=== PATIENT | male | born 1940 | race Caucasian/White ===

== ENCOUNTER 2016-07-27 12:36 | Day surgery (SDC) | payer MEDICARE, OTHER ==
[~2016-07-27] VITALS: Ht 172.7 cm; Wt 64.9 kg
[~2016-07-27 12:36] MED LIST: 0.9% Sodium Chloride 1,000 ML IV PRN; COLC0.6C3 PO; Sodium Chloride LOK Flush 10 mL Syringe IV PRN; ZLP10T PO; fentaNYL-PF 50 mCg/mL 2 mL Inj IVPUSH PRN
[2016-07-27 13:12] VITALS: BP 134/83; PULSE 56; RESP 16; O2SAT 97
[2016-07-27 14:50] VITALS: BP 121/74; PULSE 60; RESP 16; O2SAT 98
[2016-07-27 15:00] VITALS: BP 115/67; PULSE 58; RESP 16; O2SAT 96
[2016-07-27 15:10] VITALS: BP 125/90; PULSE 58; RESP 16; O2SAT 99
[2016-07-27 15:25] VITALS: BP 138/81; PULSE 57; RESP 16; O2SAT 99
--- NOTE | 2016-07-28 00:45 | ENDO ---
[address] [address] ENDOSCOPY PROCEDURE PATIENT: MIK NIEVES : 1940 MR#: [id number] ADMIT: 07/27/2016 JOB ID: [id number] DATE OF PROCEDURE: 07/27/2016 PRIMARY PROVIDER: KATIA Schilling. PROCEDURE: Esophagogastroduodenoscopy with biopsies and a colonoscopy with cold forceps polypectomy and hot snare polypectomy. INDICATIONS: A 76-year-old male with intermittent symptoms of dysphagia. He also reports for colon cancer screening and a personal history of colon polyps. Barium swallow did not reveal any stricture. EQUIPMENT: 1. GIF-H180J. 2. PCF-H180AL. SEDATION: 1. Versed 5 mg. 2. Fentanyl 100 mcg. COMPLICATIONS: None identified. BOWEL PREPARATION: Fair, adequate exam. PROCEDURE INFORMATION: After the risks and benefits were explained, written and verbal informed consent was obtained. The patient was brought into the endoscopy suite and placed into the left lateral decubitus position. Sedation was achieved using the above-stated medications with the addition of oxygen via nasal cannula. The scope was introduced into the mouth through the bite block and advanced under direct visualization to the second portion of the duodenum. The scope was slowly withdrawn to carefully examine the mucosa for any defects or lesions. Retroflexed views were accomplished in the stomach. The stomach was decompressed. The scope was removed from the patient who tolerated the procedure well. The patient was then turned around. A digital rectal examination accomplished. No significant pathology apart from some mild internal hemorrhoids were noted. The scope was introduced into the rectum and advanced under direct visualization to the level of the cecum, as identified by the appendiceal orifice and ileocecal valve. The scope was slowly withdrawn to carefully examine the mucosa for any defects or lesions. Retroflexed views were accomplished in the rectum. The colon was decompressed. The scope was removed from the patient who tolerated the procedure well. FINDINGS: 1. Duodenum: No significant pathology appreciated from the bulb through to the second portion. 2. Stomach: The patient had diffuse mild gastropathy noted throughout. Random biopsy was taken for exclusion of Helicobacter or any other underlying histopathology. No ulcers. No mass lesions. No outlet obstruction. Retroflexed views of the LES were rather unremarkable. 3. Esophagus: The squamocolumnar junction generally correlated with the top of the gastric folds. The GE junction was judged to be at approximately 40 cm from the incisors. There was evidence of LA Grade A erosive esophagitis. Right at the level of the GE junction there was perhaps a millimeter or two extension of salmon-colored mucosa up into the tubular esophagus, and this area was targeted for biopsy to exclude specialized intestinal metaplasia. Otherwise, the esophageal mucosa appeared unremarkable. The patient clearly had a subtle sliding hiatal hernia. 4. Colon: There was a diminutive polyp removed with cold forceps, and a slightly larger, perhaps 5 mm polyp, removed with hot snare from the right colon. Retroflexed views disclosed some mild internal hemorrhoids. Otherwise, no pathology appreciated throughout the colon. ENDOSCOPIC DIAGNOSES: 1. Hiatal hernia. 2. [place] Grade A erosive esophagitis. 3. 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 4. Gastropathy. 5. Colon polyps. 6. Hemorrhoids. RECOMMENDATIONS: 1. Await histopathology. 2. Protonix 20 mg once daily. 3. Repeat colonoscopy in five years. 4. If nondysplastic Cabrera's is identified, then repeat esophagogastroduodenoscopy in 9-12 months. 5. Follow up in my office in approximately six weeks to review response to proton pump inhibitor.
--- NOTE | 2016-07-29 13:52 | PATH ---
SURGICAL PATHOLOGY Attending Physician:Marbin Toure CASE STATUS: Signed Out PATIENT NAME: MIK NIEVES PID: [id number] : 1940 DATE COLLECTED:07/27/2016 00:00 SPECIMEN: 1: Gastric, Biopsy 2: Esophagus, Biopsy 3: Colon, Biopsy CLINICAL HISTORY: 1). GASTRIC 2). GE JUNCTION 3). RIGHT COLON POLYP X2 FINAL DIAGNOSIS: 1. Gastric Biopsy: Mild chronic gastritis involving fundic mucosa. Negative for evidence of Helicobacter. Negative for intestinal metaplasia. Negative for dysplasia and malignancy. 2. Gastroesophageal Junction Biopsy: Fragment of gastric cardia-type mucosa, chronically inflamed. No squamous mucosa identified. Negative for specialized metaplasia of Cabrera's type esophagus. Negative for dysplasia and malignancy. 3. Right Colon Polyps: Tubular adenoma involving both biopsy fragments. ICD10 D12.2 GROSS DESCRIPTION: The specimen is received in three formalin filled containers labeled with the patient's name. 1). The specimen is sublabeled "gastric" and consists of a 0.4 x 0.3 x 0.3 CM portion of tissue which is entirely submitted in cassette 1A. 2). The specimen is sublabeled "GE junction" and consists of a 0.3 x 0.3 x 0.3 CM portion of tissue which is entirely submitted in cassette 2A. 3). The specimen is sublabeled "right colon polyps" and consists of 2 portions of tissue which aggregate to 0.3 x 0.3 x 0.2 CM. The specimen is entirely submitted in cassette 3A. 07/28/2016 [facility] ICD-9 CODES: CPT CODES: 1: 48937 2: 19913 3: 41789 Electronically Signed Out Roberth Capps MD [facility] Pathology [facility] [address], [place] [address] Technical component performed at [facility], [address] [place] [address] Ave[address], [place], [address]
== END 2016-07-27 23:59 | disposition home or self-care (01) ==
LOC: END 12:36
PROVIDERS: ATTEND Internal Medicine Gastroenterology
DX: Z86.010 Personal history of colon polyps (principal); R13.10 Dysphagia, unspecified; D12.2 Benign neoplasm of ascending colon; K64.8 Other hemorrhoids; K22.10 Ulcer of esophagus without bleeding; K44.9 Diaphragmatic hernia without obstruction or gangrene; K29.50 Unspecified chronic gastritis without bleeding
CPT/HCPCS: 43239; 45380; 45385; 88305; 99153; G0500; J2250; J3010; J7030